=== PATIENT | male | born 1950 | race Caucasian/White ===

== ENCOUNTER 2024-04-15 08:35 | Emergency (ER) | payer MEDICARE, OTHER, SELFPAY ==
[2024-04-15] VITALS (14 sets, daily range): BP systolic 134–188; BP diastolic 72–92; PULSE 67–106; RESP 15–27; TEMP 36.8; O2SAT 92–100; BMI 29.5
--- NOTE | 2024-04-15 08:57 | ED.SEIZURE ---
HPI - Seizure General Chief Complaint: Altered Mental Status Stated Complaint: Seizure T-1 Time Seen by Provider: 04/15/24 08:38 History of Present Illness HPI Narrative: 73-year-old male with history of type 1 insulin-dependent diabetes presents for possible seizure activity. Patient and his are traveling on their boat and were docked. Initial history obtained from at bedside as the patient needed to have a bowel movement immediately after EMS arrival. states that they had gone on a walk, and the patient reported that he needed to have a bowel movement. He had eaten breakfast like normal earlier that morning and taken his usual amount of insulin. While trying to walk back to their boat they were delayed because a seal had given to a pop that did not live and was guarding the body on the dock. While waiting for the seal to move the patient began to feel like he was hypoglycemic. His symptoms of hypoglycemia generally manifest as eye twitching that progressively worsens the lower the patient's blood glucose goes. He tried to take an oral glucose supplement, but he continued to have worse and worse twitching and called EMS. EMS reports patient's seemed postictal on their arrival. Alert and oriented x4 on arrival to the emergency department denies other medical histroy and patient does not take any medications other than insulin. Related Data Allergies Allergy/AdvReac Type Severity Reaction Status Date / Time No Known Drug Allergies Allergy Verified 04/15/24 09:00 Patient History Social History Smoking Status: Never smoker Exam Initial Vital Signs Initial Vital Signs: Vital Signs Temperature 98.3 F 04/15/24 08:30 Pulse Rate 89 04/15/24 08:30 Respiratory Rate 22 04/15/24 08:30 Blood Pressure 145/84 H 04/15/24 08:30 Pulse Oximetry 97 04/15/24 08:30 Oxygen Delivery Method Room Air 04/15/24 08:30 Const: Awake, alert, no acute distress, nontoxic appearing Cardiac: regular rate, regular rhythm RESP: unlabored, clear bilaterally, no wheezing GI: Soft, nontender, nondistended, no rebound, no guarding MSK: Atraumatic, full range of motion, pulses equal Skin: Warm, Dry, intact, no rashes Neuro: AO x3, CN II-XII grossly intact, moves all extremities Course Orders Ordered: ED Orders 04/15/24 08:57 CT head/brain wo con Stat Chest [XR chest 1V] Stat EKG-12 Lead Stat 04/15/24 09:45 CBC Auto Diff [Complete Blood Count AUTO DIFF] Stat CMP [Comprehensive Metabolic Panel] Stat Lactate (Lactic Acid) Stat MAG [Magnesium] Stat PT [Prothrombin Time INR] Stat TSH [Thyroid Stimulating Hormone] Stat Troponin & CK Cardiac Panel Stat 04/15/24 11:03 UA Complete [Urinalysis and Microscopic] Stat Vital Signs Vital signs: Vital Signs - 8 hr 04/15/24 08:30 04/15/24 08:40 04/15/24 08:40 Temperature 98.3 F Pulse Rate 89 106 H Respiratory Rate 22 Blood Pressure 145/84 H 188/92 H Pulse Oximetry 97 96 Oxygen Delivery Method Room Air 04/15/24 08:52 04/15/24 08:52 04/15/24 09:00 Temperature Pulse Rate 88 Respiratory Rate Blood Pressure 145/84 H 134/76 Pulse Oximetry 95 Oxygen Delivery Method 04/15/24 09:00 04/15/24 09:14 04/15/24 09:14 Temperature Pulse Rate 83 75 Respiratory Rate 15 24 Blood Pressure 141/75 H Pulse Oximetry 93 93 Oxygen Delivery Method 04/15/24 09:30 04/15/24 09:31 04/15/24 09:31 Temperature Pulse Rate 68 72 Respiratory Rate 24 24 Blood Pressure 138/72 Pulse Oximetry 97 95 Oxygen Delivery Method Room Air 04/15/24 10:00 04/15/24 10:30 04/15/24 11:00 Temperature Pulse Rate 67 78 79 Respiratory Rate 27 H 26 H Blood Pressure Pulse Oximetry 96 92 Oxygen Delivery Method Room Air 04/15/24 11:03 04/15/24 11:03 Temperature Pulse Rate 67 Respiratory Rate Blood Pressure 165/76 H Pulse Oximetry 100 Oxygen Delivery Method Room Air MDM - Seizure Differential Diagnosis Differential diagnosis: Likely focal seizure, generalized seizure and other (hypoglycemia) Lab Data 04/15/24 09:45 04/15/24 09:45 Labs: Lab Results 04/15/24 04/15/24 04/15/24 Range/Units 09:45 11:03 11:37 WBC 6.5 (4.5-11.0) X10^3/uL RBC 4.38 L (4.5-5.9) X10^6/uL Hgb 14.1 (13.5-17.5) g/dL Hct 40.9 L (41-53) % MCV 93.4 (80-100) fL MCH 32.2 (26-34) PG MCHC 34.5 (30-36) % RDW 13.2 (11.6-14.8) % Plt Count 205 (150-400) X10^3/uL Neut % (Auto) 68.8 (50-75) % Lymph % (Auto) 17.2 L (25-40) % [place] % (Auto) 10.9 (3-14) % Eos % (Auto) 2.1 (2-4) % Baso % (Auto) 1.0 (0-2) % Neut # (Auto) 4500 (9356-1315) /uL Lymph # (Auto) 1100 (5931-6522) /uL [place] # (Auto) 700 (0-900) /uL Eos # (Auto) 100 (0-450) /uL Baso # (Auto) 100 (0-100) /uL PT 11.5 (9.4-12.5) SECONDS INR 1.0 (0.9-1.3) Sodium 138 (137-145) mmol/L Potassium 4.5 (3.4-5.1) mmol/L Chloride 107 (98-107) mmol/L Carbon Dioxide 20 L (22-32) mmol/L BUN 18 (9-20) mg/dL Creatinine 1.09 (0.66-1.25) mg/dL Estimated GFR > 60 (>60) mL/min BUN/Creatinine Ratio 16.5 (6-22) Glucose 41 L* (80-110) mg/dL Lactate 3.0 H 1.2 (0.7-2.1) mmol/L Calcium 9.1 (8.4-10.2) mg/dL Magnesium 2.5 H (1.6-2.3) mg/dL Total Bilirubin 0.6 (0.2-1.3) mg/dL AST 35 (17-59) IU/L ALT 40 (<50) IU/L Alkaline Phosphatase 64 (38-126) U/L Total Creatine Kinase 136 (55-170) U/L Troponin I < 0.012 (0.01-0.034) ng/mL Total Protein 6.9 (6.3-8.2) g/dL Albumin 4.3 (3.5-5.0) g/dL Globulin 2.6 (1.7-4.1) g/dL Albumin/Globulin Ratio 1.7 (1.0-2.8) TSH 2.51 (0.47-4.68) uIU/mL Urine Color Yellow Urine Appearance Sl cloudy Urine pH 5.5 (4.5-8.0) Ur Specific [place] 1.025 (1.000-1.035) Urine Protein Trace H (Negative) Urine Glucose (UA) Negative (Negative) g/dL Urine Ketones Negative (NEGATIVE) Urine Occult Blood Negative (Negative) Urine Nitrate Negative (Negative) Urine Bilirubin Negative (NEGATIVE) Urine Urobilinogen 0.2 (0.2) E.U./dL Ur Leukocyte Esterase Negative (NEGATIVE) Urine RBC None seen (0-5/HPF) Urine WBC None seen (0-5/HPF) Ur Squamous Epith Cells None seen (0-5/HPF) Urine Bacteria None seen (None) Ur Culture Indicated? Cult not indicated Vol Urine Centrifuged 10ml (spun) Point of Care Testing Glucose POC 168 Imaging Data Chest x-ray: Radiologist's Impression: PROCEDURE: XR CHEST 1V INDICATIONS: SEIZURE TECHNIQUE: One view of the chest was acquired. COMPARISON: None. FINDINGS: Surgical changes and devices: None. Lungs and pleura: Lungs are clear. No pleural effusions or pneumothorax. Mediastinum: Mediastinal contours appear normal. Heart size is normal. Bones and chest wall: No suspicious bony lesions. Overlying soft tissues appear unremarkable. IMPRESSION: No acute cardiopulmonary abnormality is seen. Dictated by: Shimon Anderson M.D. on 04/15/2024 at 9:13 Approved by: Shimon Anderson M.D. on 04/15/2024 at 9:13 CT scan - head: Radiologist's Impression: PROCEDURE: CT HEAD/BRAIN WO CON INDICATIONS: SEIZURE, NEW TECHNIQUE: Noncontrast 4.5 mm thick angled axial sections acquired from the foramen magnum to the vertex, with coronal and sagittal reformats. For radiation dose reduction, the following was used: automated exposure control, adjustment of mA and/or kV according to patient size. COMPARISON: None. FINDINGS: Image quality: Diagnostic. CSF spaces: Basal cisterns are patent. No extra-axial fluid collections. The ventricles are symmetric in size and shape. Brain: No intracranial bleeds or masses. There is cerebral volume loss for age, with resultant ventricular and sulcal prominence. There are periventricular and deep white matter chronic small vessel ischemic changes. There is intracranial internal carotid artery atherosclerosis. Skull and face: Calvarium and visualized facial bones appear intact, without suspicious lesions. Sinuses: Visualized sinuses and mastoids are clear. IMPRESSION: No acute intracranial pathology. Dictated by: Shimon Anderson M.D. on 04/15/2024 at 9:12 Approved by: Shimon Anderson M.D. on 04/15/2024 at 9:13 ECG Data Interpretation: Normal sinus rhythm MDM Narrative Medical decision making narrative: Well-appearing patient with possible seizure-like activity that patient states was preceded by symptoms of low blood glucose. On arrival patient is glucose 112 pr Dexcom monitoring. Laboratory work and imaging to be obtained. Possible component of either orthostatics are vasovagal as patient's did report that he had to have a bowel movement prior to onset Labs reviewed, Initial glucose on labs 41. Ptient has been awake and alert throughout the ED stay, initial hypoglycemia improved with oral glucose and juice. Lactic acid 3.0, improved to 1.2. No further episodes of twitching or abnormal activity noted. CT brain, CXR negative for acute findings. Patient states that he still has a very mild foggy feeling, but he feels overall improved and states that he feels well enoug to go home. He will follow up with his diabetic specialist at home. ED return precautions discussed at bedside Discharge Plan Departure Patient Disposition: Home Clinical Impression: Hypoglycemia, Seizure-like activity Instructions: DI for Hypoglycemia Activity Restrictions/Additional Instructions: Your sugar seems to have stabilized. The CT of your brain and the x-ray of your chest did not show any obvious abnormalities. There was no evidence of infection or electrolyte abnormalities in your blood work. Keep a close eye on your glucose using your Dexcom. Make sure to follow up with your primary care doctor concerning her glucoses when you get back home. Stand Alone Forms: Patient Portal/API
--- NOTE | 2024-04-15 09:00 | PC.NURSE ---
Pt alert and oriented x4, reports feeling off, but feeling much better. Rpts he is starting to feel pain around his right cheek/ right eye from abrasions obtained while having a possible seizure on the cement dock. Spouse at bedside. Pt has a CGM he uses with his phone to check BG. describes herself and patient standing on the dock waiting to pass an aggressive seal, which had given to a stillborn pup and was protecting it on the dock. Spouse reports pt started acting funny, and he was testy and wouldnt listen when I asked him to sit down. Spouse endorses concern he was going to fall into the water. Pt started to slowly collapse and landed on his right side, then twitching for 2 minutes on the cement dock. History of seizures from hypoglycemia but spouse states this looked much different.
--- NOTE | 2024-04-15 09:40 | PC.NURSE ---
Patient stood and turned to use thew commode under his own power. The patient lost his bowels prior to arriving in the ER, so the patient was undressed, thoroughly cleaned, and placed in a gown with a pull-up brief.
--- NOTE | 2024-04-15 10:00 | PC.NURSE ---
Pt reports he is feeling twitchy again. Dexcom GCM reading 97. ER glucometer reads 38 BG. Provider notified, pt given an orange juice, apple juice, egg salad sandwich half, and [place] yogurt to eat.
[2024-04-15 10:02] LABS: Add Manual Diff / Slide Review NO; Basophils Absolute Auto 100 /uL (0-100); Eosinophils Absolute Auto 100 /uL (0-450); Eosinophils Percent Auto 2.1 % (2-4); Hematocrit 40.9 % (41-53); Hemoglobin 14.1 g/dL (13.5-17.5); Lymphocytes Absolute Auto 1100 /uL (1100-4500); Lymphocytes Percent Auto 17.2 % (25-40); Mean Corpuscular HGB Conc 34.5 % (30-36); Mean Corpuscular Hemoglobin 32.2 PG (26-34); Mean Corpuscular Volume 93.4 fL (80-100); Monocytes Absolute Auto 700 /uL (0-900); Monocytes Percent Auto 10.9 % (3-14); Neutrophils Absolute Auto 4500 /uL (1500-7000); Neutrophils Percent Auto 68.8 % (50-75); Platelet Count 205 X10^3/uL (150-400); Red Blood Cell Count 4.38 X10^6/uL (4.5-5.9); Red Cell Distribution Width 13.2 % (11.6-14.8); White Blood Cell Count 6.5 X10^3/uL (4.5-11.0)
[2024-04-15 10:15] LABS: Prothrombin Time 11.5 SECONDS (9.4-12.5)
[2024-04-15 10:17] LABS: Creatine Kinase 136 U/L (55-170)
[2024-04-15 10:19] LABS: Alanine Aminotransferase 40 IU/L (<50); Albumin 4.3 g/dL (3.5-5.0); Albumin Globulin Ratio 1.7 (1.0-2.8); Alkaline Phosphatase 64 U/L (38-126); Aspartate Aminotransferase 35 IU/L (17-59); BUN Creatinine Ratio 16.5 (6-22); Bilirubin Total 0.6 mg/dL (0.2-1.3); Blood Urea Nitrogen 18 mg/dL (9-20); Calcium 9.1 mg/dL (8.4-10.2); Carbon Dioxide 20 mmol/L (22-32); Chloride 107 mmol/L (98-107); Estimated Glomerular Filt Rate > 60 mL/min (>60); Globulin 2.6 g/dL (1.7-4.1); Glucose 41 mg/dL (80-110); Magnesium 2.5 mg/dL (1.6-2.3); Potassium 4.5 mmol/L (3.4-5.1); Sodium 138 mmol/L (137-145); Total Protein 6.9 g/dL (6.3-8.2)
[2024-04-15 10:20] LABS: HEMOLYSIS < 15 (0-50)
[2024-04-15 10:30] LABS: Troponin I < 0.012 ng/mL (0.01-0.034)
[2024-04-15 10:49] LABS: Thyroid Stimulating Hormone 2.51 uIU/mL (0.47-4.68)
[2024-04-15 11:15] LABS: Appearance Urine UA SL CLOUDY; Bilirubin Urine UA NEGATIVE (NEGATIVE); Color Urine UA YELLOW; Glucose Urine UA NEGATIVE (Negative); Ketones Urine UA NEGATIVE (NEGATIVE); Leukocyte Esterase Urine UA NEGATIVE (NEGATIVE); Nitrite Urine UA NEGATIVE (Negative); Occult Blood Urine UA NEGATIVE (Negative); Protein Urine UA TRACE (Negative); Specific Gravity Urine UA 1.025 (1.000-1.035); Urobilinogen Urine UA 0.2 E.U./dL (0.2); pH Urine UA 5.5 (4.5-8.0)
[2024-04-15 11:19] LABS: Urine Volume 10mL (spun)
[2024-04-15 11:20] LABS: Bacteria Urine None Seen; Culture Indicated Urine Cult Not Indicated; RBC Urine None Seen (0-5/HPF); Squamous Epithelial Cell Urine None Seen (0-5/HPF); WBC Urine None Seen (0-5/HPF)
[2024-04-15 11:31] LABS: Reflexed Lactate in 2 Hours Y
[2024-04-15 12:02] LABS: Lactate 2HR (Lactic Acid Rflx) 1.2 mmol/L (0.7-2.1)
== END 2024-04-15 12:20 | disposition home or self-care (01) ==
PROVIDERS: Emergency Provider Emergency Medicine
DX: E10.9 Type 1 diabetes mellitus without complications (principal); E10.649 Type 1 diabetes mellitus with hypoglycemia without coma; R56.9 Unspecified convulsions
CPT/HCPCS: 36415; 70450; 71045; 80053; 81001; 82550; 82962; 83605; 83735; 84443; 84484; 85025; 85610; 99282; 99284